=== PATIENT | male | born 1970 | race Two or more races ===

== ENCOUNTER 2023-08-03 10:33 | Emergency (ER) | payer BC ==
[~2023-08-03] VITALS: Ht 160 cm; Wt 56.7 kg
[2023-08-03] MEDS ORDERED: 0.9 % SODIUM CHLORIDE 500 ML IV ONE (11:00)
[2023-08-03 11:22] LABS: URINE APPEARANCE Clear; URINE BILIRRUBIN Negative (NEGATIVE); URINE BLOOD Trace; URINE COLOR Yellow; URINE GLUCOSE Negative (NEGATIVE); URINE LEUKOCYTE Negative; URINE NITRATE Negative; URINE PROTEIN Trace (NEGATIVE); URINE UROBILINOGEN 0.2 E.U./dl
[2023-08-03 11:26] LABS: URINE BACTERIA 20.1 uL (0.0-1933); URINE EPITHELIAL CELLS 5.4 uL (0.0-38.8)
[2023-08-03 11:34] LABS: HEMOGLOBIN 14.8 g/dL (13-16.00); MEAN CELL VOLUME 98.4 fL (80.0-100.00); MEAN CORPUSCULAR HEMOGLOBIN 32.3 pg (27.00-32.0); MEAN CORPUSCULAR HGB CONC 32.8 g/dl (32.0-36.0); PLATELET COUNT 189 K/uL (150-450); RED BLOOD COUNT 4.57 M/uL (4.00-6.00); RED CELL DISTRIBUTION WIDTH 13.4 % (11.5-14.5)
[2023-08-03 12:35] LABS: ALBUMIN 3.5 gm/dL (3.4-5.0); BILIRUBIN TOTAL 0.4 mg/dL (0.3-1.2); CALCIUM 8.1 mg/dL (8.5-10.1); CREATININE SERUM 1.19 mg/dL (0.70-1.30); GFR 63.95; GLOBULINA 3.6 G/DL (2.4-3.5); MAGNESIUM 1.9 mg/dL (1.8-2.4); POTASSIUM 4.33 mEq/L (3.5-5.1); TOTAL PROTEIN 7.1 gm/dL (6.4-8.2)
[2023-08-03 12:42] LABS: TSH 0.149 uIU/mL (0.358-3.74)
[2023-08-03 12:46] LABS: URINE RBC 0.7 uL (0.0-20.8)
[2023-08-03 13:23] LABS: ABG PH 7.336 (7.35-7.45); ABG PO2 103.5 mmHg (80-100); ABG pCO2 29.6 mmHg (35-45)
[2023-08-03 13:24] LABS: BASE EXCESS -8.9 mmol/l; BICARBONATE 15.5 mmol/l (23-25); SaO2 97.3 %; Tco2 16.4 mmol/l
[2023-08-03 13:25] LABS: allen test SATISFACTORY; o2 21 %; puncture site RADIAL LEFT
[2023-08-03 14:36] LABS: CALCIUM 7.9 mg/dL (8.5-10.1); CREATININE SERUM 0.96 mg/dL (0.70-1.30); GFR 81.93; POTASSIUM 4.52 mEq/L (3.5-5.1)
== END 2023-08-03 15:25 | disposition home or self-care (01) ==
LOC: ER 10:33
PROVIDERS: General Practice
DX: E87.29 Other acidosis (principal); F10.20 Alcohol dependence, uncomplicated